=== PATIENT | male | born 2000 ===

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

== ENCOUNTER 2025-05-23 22:28 | Emergency (ER) | payer SELFPAY ==
[~2025-05-23] VITALS: Ht 170.2 cm; Wt 59.0 kg
[~2025-05-23 22:28] MED LIST changes: +PERIDEX15 ML MM
[2025-05-23 22:38] VITALS: BP 144/101
[2025-05-23] MEDS ORDERED: DOXY100 PO (22:43)
[2025-05-23] MEDS ORDERED: CefTRIAXone 1000 MG Vial IM ONE (22:45)
== END 2025-05-23 23:05 | disposition home or self-care (01) ==
LOC: ER 22:28
DX: A74.9 Chlamydial infection, unspecified (principal); A54.9 Gonococcal infection, unspecified; Z79.2 Long term (current) use of antibiotics; Z79.899 Other long term (current) drug therapy
CPT/HCPCS: 96372; 99282-25; A9270; J0696